=== PATIENT | male | born 1950 | race Caucasian/White ===

== ENCOUNTER 2017-05-29 02:53 | Emergency (ER) | payer MEDICARE, BC ==
[~2017-05-29] VITALS: Ht 167.6 cm; Wt 77.3 kg
[2017-05-29 02:57] VITALS: Ht 167.6 cm; Wt 77.3 kg
[2017-05-29] MEDS ORDERED: ONDANSETRON (ODT) 4 MG TAB ODT STA (03:35)
[2017-05-29] MEDS ORDERED: IBUP-1542 PO ×2 (03:49→05:50)
[2017-05-29] MEDS ORDERED: ESOM20CA PO (03:49)
[2017-05-29] MEDS ORDERED: ATEN-51 PO (03:49)
[2017-05-29] MEDS ORDERED: AMLO1TAB12 PO (03:49)
--- NOTE | 2017-05-29 03:50 | ERD ---
ER Documentation Chief Complaint Date/Time DATE: 05/29/17 TIME: 03:46 Chief Complaint BACK SPASM PAIN 08/30; HX CHRONIC BACK PAIN HPI 67-year-old male presents here in emergency department for complaints of lower back pain that got worse tonight, patient has been having on and of back pain for the last one month, always had history of back problems. Patient walks in a walker. Patient is bending her is back most of the times. Tonight, while lying down, he started to have pain that is more severe in the back. Patient described the pain as sharp pain, 8/10 scale, completed with muscle spasms. Patient did not take any medications to be symptoms. Patient denies any direct on affected area. Patient denies any numbness or tingling. Patient denies any incontinence. Patient denies any fever or chills. Patient denies hematuria or dysuria. ROS All systems reviewed and are negative except as per history of present illness. Medications Home Meds Active Scripts Ibuprofen* (Motrin*) 600 Mg Tab, 600 MG PO Q6H Y for PAIN AND OR ELEVATED TEMP, #30 TAB Prov:STEVE MCLEOD [employer] 05/29/17 Reported Medications Esomeprazole Mag Trihydrate (Nexium) Unknown Strength Capsule.dr, PO DAILY, #30 CAP 05/29/17 Atenolol* (Atenolol*) Unknown Strength Tablet, PO DAILY, #30 TAB 05/29/17 Amlodipine/Valsartan (Exforge 5-160 mg Tablet) Unknown Strength Tablet, PO, TAB 05/29/17 Allergies Allergies: Coded Allergies: No Known Allergy (Unverified , 05/29/17) PMhx/Soc Medical and Surgical Hx: pt denies Surgical Hx History of Surgery: No Anesthesia Reaction: No Hx Neurological Disorder: No Hx Respiratory Disorders: No Hx Cardiac Disorders: Yes (HTN) Hx Psychiatric Problems: No Hx Miscellaneous Medical Probl: Yes (CHRONIC BACK PAIN) Hx Alcohol Use: No Hx Substance Use: No Hx Tobacco Use: Yes (1-PACK/DAY) Smoking Status: Current every day smoker FmHx Family History: No coronary disease, No diabetes, No other Physical Exam Vitals Vital Signs Date Time Temp Pulse Resp B/P Pulse Ox O2 Delivery O2 Flow Rate FiO2 05/29/17 02:57 98.1 89 20 135/63 99 Physical Exam GENERAL: The patient is well developed and appropriate for usual state of health, in no apparent distress. CHEST: Clear to auscultation bilaterally. There are no rales, wheezes or rhonchi. HEART: Regular rate and rhythm. No murmurs, clicks, rubs or gallops. No S3 or S4. ABDOMEN: Soft, nontender and nondistended. Good bowel sounds. No rebound or guarding. No gross peritonitis. No gross organomegaly or masses. No Crawford sign or McBurney point tenderness. BACK: No midline or flank tenderness. Muscle spasms noted in the paraspinal aspect of the lumbar spine, able to do full range of motion without any restriction. EXTREMITIES: Equal pulses bilaterally. There is no peripheral clubbing, cyanosis or edema. No focal swelling or erythema. Full range of motion. Grossly neurovascularly intact. NEURO: Alert and oriented. Cranial nerves 2-12 intact. Motor strength in all 4 extremities with 5/5 strength. Sensation grossly intact. Normal speech and gait. SKIN: There is no apparent rash or petechia. The skin is warm and dry. HEMATOLOGIC AND LYMPHATIC: There is no evidence of excessive bruising or lymphedema. No gross cervical, axillary, or inguinal lymphadenopathy. Results 24 hrs Current Medications Medications (Trade) Dose Ordered Sig/Yamilka Route PRN Reason Start Time Stop Time Status Last Admin Dose Admin Morphine Sulfate (morphine) 6 mg ONCE ONCE IM 05/29/17 04:00 05/29/17 04:01 DC 05/29/17 03:56 Ondansetron HCl (Zofran Odt) 4 mg ONCE STAT ODT 05/29/17 03:35 05/29/17 03:37 DC 05/29/17 03:55 Diazepam (Valium) 5 mg ONCE ONCE IM 05/29/17 04:00 05/29/17 04:01 DC 05/29/17 03:55 Patient was given medication for pain here in emergency department, after treatment, patient verbalized feeling much better. Patient's pain is improved.Patient was given Zofran here in the emergency department. After treatment, patient was able to tolerate po fluids here in the emergency department without any vomiting. There is no signs and symptoms of dehydration. Valium was given to help with muscle spasms. PROCEDURE: CT L-Spine. CLINICAL INDICATION: lower back pain TECHNIQUE: Section spiral CT images through the lumbar spine without contrast. Multiplanar reconstructions. .The CTDIvol is 36.05 mGy and the DLP is 1111.38 mGycm. One or more of the following dose reduction techniques were used: automated exposure control, adjustment of the mA and/or kV according to patient size, or use of iterative reconstruction technique. COMPARISON: None FINDINGS: Alignment anatomic. Vertebral body heights are preserved. Anterior osteophytes and disk bulges are seen throughout. No fracture is seen. Atherosclerotic vascular calcification is seen. Partially imaged probable right renal cyst. No lytic or blastic bony lesion is seen. T12-L1: The disk is normal in height. Minimal disk bulge. No significant canal or foraminal narrowing. L1-2: The disk is normal in height. Minimal central disk bulge. No significant canal or foraminal narrowing. L2-3: The disk is normal in height. Minimal disk bulge. No significant canal or foraminal narrowing. L3-4: The disk is normal in height. Small diffuse disk bulge with mild facet and ligamentous hypertrophic change contributing to slight left and minimal right foraminal narrowing. No significant canal stenosis. L4-5: The disk is normal in height. Moderate diffuse disk bulge/protrusion without extrusion. Facet and ligamentous hypertrophic changes are also seen and contribute to moderate right greater than left foraminal narrowing. No italo spinal stenosis. AP canal diameter of 13 mm. L5-S1: The disk is normal in height. Minimal posterior disk bulge. Facet and ligamentous hypertrophic changes contribute to slight right foraminal narrowing. IMPRESSION: No fracture or listhesis. Multilevel lumbar spondylosis as described. RPTAT: [facility] Physician Lloyd Date Time Electronically viewed and signed by Physician Lloyd on 05/29/2017 05 :41 LE/ CC: STEVE MCLEOD [employer] Procedures/MDM Medical Decision Making: Patient's pain is most likely consistent with a back strain degenerative disc disease. There is no suspicion for neurovascular compromise. Patient has intact sensation and circulation of the affected extremity and distal extremities. No incontinence, no suspicion for cauda equina syndrome, no saddle anesthesia, no symptoms of any acute bacterial infection, no symptoms of any perirectal abscesses, pilonidal cyst.There is low suspicion for septic arthritis. Patient does not have any fever. No symptoms of any aortic dissection or aortic aneurysm. Radiology exam does not show any fracture, or dislocation. Disposition: Home. Patient is given prescription for ibuprofen for mild to moderate pain, [place] for severe pain, Valium for muscle spasm, prednisone. Patient was advised to avoid heavy lifting , apply warm compresses on affected area. Patient was advised that if symptoms are worse, numbness, tingling, high fever, unable to move joint, worsening symptoms, to return to emergency department immediately. Otherwise, patient is advised to follow up with the primary care doctor in 5-7 days for reevaluation of symptoms. Departure Diagnosis: Primary Impression: Back pain Back pain location: low back pain Chronicity: acute Back pain laterality: bilateral Sciatica presence: without sciatica Qualified Code: M54.5 - Acute bilateral low back pain without sciatica Additional Impression: Degenerative disc disease Spinal region: lumbosacral Qualified Code: M51.37 - Degeneration of intervertebral disc of lumbosacral region Condition: Stable Patient Instructions: Back Pain (Acute Or Chronic), Degenerative Disk Disease Additional Instructions: Patient is given prescription for ibuprofen for mild to moderate pain, [place] for severe pain, Valium for muscle spasm, prednisone. Patient was advised to avoid heavy lifting , apply warm compresses on affected area. Patient was advised that if symptoms are worse, numbness, tingling, high fever, unable to move joint, worsening symptoms, to return to emergency department immediately. Otherwise, patient is advised to follow up with the primary care doctor in 5-7 days for reevaluation of symptoms. STEVE MCLEOD NP May 29, 2017 03:50
[2017-05-29] MEDS ORDERED: DIAZEPAM 5 MG/ML SYG IM ONE (04:00)
[2017-05-29] MEDS ORDERED: morphine 10 MG INJ IM ONE (04:00)
--- NOTE | 2017-05-29 05:42 | RADRPT ---
PROCEDURE: CT L-Spine. CLINICAL INDICATION: lower back pain TECHNIQUE: Section spiral CT images through the lumbar spine without contrast. Multiplanar recons tructions. .The CTDIvol is 36.05 mGy and the DLP is 1111.38 mGycm. One or more of the following do se reduction techniques were used: automated exposure control, adjustment of the mA and/or kV accord ing to patient size, or use of iterative reconstruction technique. COMPARISON: None FINDINGS: Alignment anatomic. Vertebral body heights are preserved. Anterior osteophytes and disk bulges are seen throughout. No fracture is seen. Atherosclerotic vascular calcification is seen. Partially imaged probable right renal cyst. No lytic or blastic bony lesion is seen. T12-L1: The disk is normal in height. Minimal disk bulge. No significant canal or foraminal narrow ing. L1-2: The disk is normal in height. Minimal central disk bulge. No significant canal or foraminal narrowing. L2-3: The disk is normal in height. Minimal disk bulge. No significant canal or foraminal narrowin g. L3-4: The disk is normal in height. Small diffuse disk bulge with mild facet and ligamentous hypert rophic change contributing to slight left and minimal right foraminal narrowing. No significant can al stenosis. L4-5: The disk is normal in height. Moderate diffuse disk bulge/protrusion without extrusion. Face t and ligamentous hypertrophic changes are also seen and contribute to moderate right greater than l eft foraminal narrowing. No italo spinal stenosis. AP canal diameter of 13 mm. L5-S1: The disk is normal in height. Minimal posterior disk bulge. Facet and ligamentous hypertroph ic changes contribute to slight right foraminal narrowing. IMPRESSION: No fracture or listhesis. Multilevel lumbar spondylosis as described. RPTAT: [facility] Physician Lloyd Date Time Electronically viewed and signed by Physician Lloyd on 05/29/2017 05:41 LE/
[2017-05-29] MEDS ORDERED: DIAZ-90 PO (05:50)
[2017-05-29] MEDS ORDERED: PRED50TA PO (05:50)
[2017-05-29] MEDS ORDERED: HYDR-902 PO (05:50)
[2017-05-29 06:07] VITALS: BP 131/68; PULSE 80; RESP 18
== END 2017-05-29 06:08 | disposition home or self-care (01) ==
LOC: FTE 02:53
DX: M54.5 Low back pain (principal); M51.37 Other intervertebral disc degeneration, lumbosacral region; I10 Essential (primary) hypertension; F17.210 Nicotine dependence, cigarettes, uncomplicated
CPT/HCPCS: 72131; 96372; 99285; J2270; J3360